=== PATIENT | female | born 1970 | race Caucasian/White ===

== ENCOUNTER 2017-05-07 11:59 | Observation (INO) | payer OTHER, SELFPAY ==
[2017-05-07] MEDS ORDERED: Ondansetron HCl/PF 4 MG/2 ML Vial ONE (12:34)
[2017-05-07 13:20] LABS: Troponin I Less than 0.010 ng/mL (< 0.028)
[2017-05-07] MEDS ORDERED: Ondansetron ODT 4 MG TAB PO PRN (15:52)
[2017-05-07 15:54] VITALS: BMI 21.0
--- NOTE | 2017-05-07 16:25 | CT ---
CT BRAIN NONCONTRAST: 05/07/17 HISTORY: 47-year-old male with right sided headache, TIA, and lightheadedness. FINDINGS: The ventricles are normal in size and configuration. There is no midline shift or any other mass eff ect. There is no evidence of acute intracranial hemorrhage, large cortical infarct, or extraaxial fl uid collection. The snell matter /white matter differentiation is maintained. The calvarium is intac t. The tympanomastoid cavities, and the upper portions of the paranasal sinuses included in these im ages, are grossly clear. IMPRESSION: Normal. jn [] POS: [facility]
[2017-05-07 17:23] LABS: Magnesium 2.3 mg/dL (1.6-2.6); Phosphorus 4.1 mg/dL (2.3-4.7)
--- NOTE | 2017-05-07 17:30 | PDOC.EVN ---
Event Note - Event Note Event Note: Patient seen and examined. Case discussed with Dr. Caruso/Liliam and his H&P reviewed and repeated by me. Agree with A/P as documented. Briefly Ms Batista is a 47 y/o HF with PMH of CAD, fibromyalgia, GERD, HLD, HTN , migraine headaches, asthma who presents with chest pain and left sided weakness. Per patient she was seen in two ERs ([facility]) on night with L sided weakness, chest pain, paresthesias of hands and back , headache. Per her report she was told she might have had a stroke but their CT scanner was broken so they couldn't confirm. She was discharged and by the time she got home she was having chest pain and so went to [facility] ER where they diagnosed her with GI cause and sent her home. She continues to have chest pain and left sided weakness so returned today for reevaluation. Patient has a 55% blockage in an artery in her heart per her last cardiology visit 2 years ago and she thinks she might have had a mini stroke a few years ago. Today she describes her chest pain as pressure with intermittent sharp twinges that is central/left sided and radiates to neck and left shoulder. Associated with dyspnea and nausea. Denies diaphoresis. VSS Gen: A&Ox3, mildly anxious, nad Neck: no carotid bruits CV: normal S1/s2 no m,g,r Lungs: CTAB Abd: soft, nd, mild ttp RUQ, no rebound or guarding Ext: no c/c/e Neuro: CN II-XII grossly intact, LUE and LLE 4/5, RUE and RLL 5/5, patellar reflexes 2+, subjective decreased sensation to LUE and LLE Labs and imaging reviewed. 1. L-sided weakness- CT scan shows no ischemic or hemorrhagic CVA. With three days of symptoms I doubt CVA as cause. PT/OT/ST, NIH stroke scale. Most likely conversion disorder. Continue to explore anxiety/stressful situations in life. Increase ASA to 325 mg daily for now. 2. CP r/o AR- EKG normal. Trend trops and check stress test in am. ASA, statin. 3. HTN- cont home meds 4. Fibromyalgia 5. HLD- check lipids.
[2017-05-07] MEDS: Acetaminophen 325 MG TAB PO PRN (18:32)
--- NOTE | 2017-05-07 20:16 | HP-2 ---
CODE STATUS: FULL. PRIMARY CARE PHYSICIAN: Myriam Chawla. ATTENDING: Dr. Springer RESIDENT: Dr. Caruso. CHIEF COMPLAINT: Chest pain. HISTORY OF PRESENT ILLNESS: This is a 47-year-old female with 3-day history of chest pain. It began on and would not go away. She also had some left -sided weakness, numbness and tingling at the same time. She has had associated dizziness and nausea, but she denies vomiting at this time. She does admit to some episodes of diarrhea. She said that she was told she could have had a stroke on of this week, but they did not do a CT scan because it was not working at that time and the medical providers at the outside facility did not warrant a transfer for a workup. She states nothing makes the pain better or worse. The thing that bothers her the most is the chest pain, but she does note that the left-sided weakness and numbness has not gone away either. She has no complaints at this time. In the ER, she was given Zofran. PAST MEDICAL HISTORY: Significant for fibromyalgia, coronary artery disease, diverticulosis, hiatal hernias, GERD, hyperlipidemia, hypertension, migraines and asthma. PAST SURGICAL HISTORY: Includes heart catheterization x5 with most recent 18 months ago that did not show any blockage, appendectomy, carpal tunnel releases bilaterally, a cholecystectomy, hysterectomy, ulnar nerve releases bilaterally. ALLERGIES: BUPROPION, CLINDAMYCIN, DEMEROL, LATEX, MEPERIDINE, PROPOXYPHENE, TRAMADOL and WELLBUTRIN. MEDICATIONS: Include, 1. Ranexa 1000 mg twice a day. 2. Singulair 10 mg once a day. 3. Elmiron 100 mg 3 times a day. 4. Nexium 40 mg 3 times a day. 5. Cymbalta 60 mg 1 time a day. 6. Mevacor 20 mg once a day. 7. Gabapentin 1200 mg 3 times a day. 8. Aspirin 81 mg a day. 9. Bentyl 20 mg. 10. Motrin 600 mg. 11. Nitro pump spray. 12. Zanaflex 2 mg 3 times a day. 13. Promethazine 60 mg. 14. Levsin 0.125 four times a day. 15. Fioricet tablet as needed. 16. Estrace 0.1 mg 2 times a week. 17. Symbicort 160/4.5 two puffs 2 times a day. 18. Xopenex 2 puffs 3 times a day. 19. Tiazac 120 mg 2 times a day. FAMILY HISTORY: Noncontributory. SOCIAL HISTORY: She is a current smoker. She is smoking about half pack per day. She has a 13-hqia-cnbv smoking history. She denies alcohol or drug use. REVIEW OF SYSTEMS: GENERAL: She denies any fevers, chills, weight changes, night sweats, or fatigue. EYES: Denies any vision changes. ENT: Denies nasal congestion, rhinorrhea, sore throat. RESPIRATORY: Denies cough, congestion. She does admit to shortness of breath. Denies any exercise intolerance. CARDIOVASCULAR: She does admit chest pain. Denies palpitations or edema. She does admit to orthopnea. GASTROINTESTINAL: She admits to nausea and diarrhea. She denies vomiting, constipation, abdominal pain, GI bleeding. GENITOURINARY: Denies incontinence, dysuria. SKIN: Denies rashes, lesions, jaundice, itching. MUSCULOSKELETAL: Denies pain, tenderness, stiffness, swelling. NEUROLOGIC: She does admit to weakness and numbness especially on her left side and some dizziness. PSYCHIATRIC: She does admit to anxiety. She denies any depression. PHYSICAL EXAMINATION: VITAL SIGNS: Blood pressure is 126/63, pulse 69, respiration 16, temperature max 98.9, pulse ox 97% on room air, current weight is 57 kilos. GENERAL: Alert and oriented x4, appropriately interactive. HEENT: PERRLA. Conjunctivae within normal limits. ENT: Tympanic membranes are pearly snell without bulging or erythema. Nasal mucosa and oropharynx within normal limits. NECK: Supple, no lymphadenopathy, no thyromegaly. CARDIOVASCULAR: Regular rate and rhythm. No murmurs, no gallops. Radial and pedal pulses equal bilaterally. RESPIRATORY: Normal effort, no retractions. Lungs clear to auscultation bilaterally. SKIN: Warm and dry. No cyanosis. No lesions. ABDOMEN: Soft, nontender to palpation. Bowel sounds are present x4. No masses or distention. EXTREMITIES: No clubbing, cyanosis, no edema. MUSCULOSKELETAL: Structure, tone. Range of motion within normal limits. Neuro exam is inconsistent at times. Informal strength testing 5/5 on both bilateral upper and lower extremities. When prompted to do so formal strength testing, she does have intermittent episodes of weakness with strength 4/5 left- sided on upper and lower extremities. NEUROLOGIC: Cranial nerves II-XII are grossly intact. GCS is 15. Inconsistent left-sided facial droop that is not present at all times. She also specifically notes when asked to stick out her tongue that she deviates to the strong side and not to the weak side which further points to her inconsistent exam. She was appropriate. Mild decrease in fine touch sensation LLE and LUE. LABORATORY DATA: These were performed at an outside ED, white blood cell count 6.9, platelet count 190. Hemoglobin 14, hematocrit 40.7, MCV was 93%, neutrophils 43.5. CK was 78, CK-MB was 0.7. Troponin I was less than 0.01. Sodium 141, potassium 3.8, chloride 108, bicarbonate 22, creatinine 11.6. BUN was 11.6, creatinine was 0.9, GFR was 69, glucose was 93, calcium was 9.4. Her total protein 7.1, albumin 4.2, total bilirubin 0.5, AST was 15, ALT 17, alkaline phosphatase 83. Her EKG showed normal sinus rhythm. Her chest x-ray at an outside ER showed nothing acute. ASSESSMENT AND PLAN: We have a 47-year-old female that presents with: 1. Left-sided weakness. We have to rule out a cerebrovascular accident versus conversion disorder. We will do a CT of her head, neuro checks and NIH scale stroke admit. Increase her aspirin to 325. 2. Atypical chest pain- with multiple cardiac risk factors. We will trend in her troponins. We will consider a stress test. She did have a stress test in 02/2016 that showed a normal cardiac function at that time. We are getting a TSH, BNP, mag, phos, and a fasting lipid panel to risk stratify her from that standpoint. 3. Hyperlipidemia. We will continue her statin. Consider increasing the dosage. 4. Chronic angina. We will continue her home medications. 5. Gastroesophageal reflux disease. We will continue her home medications. 6. Asthma. We will continue her home medications. This patient has a lot of other chronic medical problems that we will be holding her medications at this time to see if that has any effect on her presentation. DISPOSITION AND LENGTH OF HOSPITAL STAY: Will be Stroke and 1 midnight. Symptomatic medications will be provided. History and physical exam as well as management has been discussed with Dr. Springer. KEVIN
[2017-05-07 20:20] LABS: Troponin I Less than 0.010 ng/mL (< 0.028)
[2017-05-07] MEDS ORDERED: Lovastatin 20 MG TAB PO SCH (21:00)
[2017-05-07] MEDS ORDERED: diphenhydrAMINE 25 MG CAP PO SCH (21:45)
[2017-05-08] MEDS ORDERED: Ondansetron HCl/PF 4 MG/2 ML Vial IVP SCH (04:30)
[2017-05-08] MEDS ORDERED: Sodium Chloride 0.9% 1,000 ML IV SCH (04:30)
[2017-05-08 05:56] LABS: Anion Gap 11 mmol/L (10-20); BUN (Urea Nitrogen) 13 mg/dL (7.0-18.7); Calc. Creatinine Clearance 74 mL/min (70-130); Calcium 9.1 mg/dL (7.8-10.44); Carbon Dioxide 25 mmol/L (22-29); Chloride 108 mmol/L (98-107); Cholesterol 221 mg/dl (< 200 Desired); Estimated GFR-MDRD 74; LDL Cholesterol, Calculated 155 mg/dL
--- NOTE | 2017-05-08 07:29 | PDOC.FM ---
- Subjective Subjective: No acute events overnight. Her subjective neurological complaints have improved. She denies any anxiety. We had a long conversation about her health conditions and that we have done every test for her pertinent medical problems. I also told her that she would likely benefit from shelter CBT or counseling to deal with her anxiety issues. She will need close outpatient follow for her subjective complaints. - Objective Vital Signs & Weight: Vital Signs (12 hours) Temp Pulse Resp BP BP Pulse Ox 05/08/17 05:48 96/61 05/08/17 04:09 88/58 L 05/08/17 03:16 98.3 F 56 L 16 89/54 L 98 05/08/17 00:15 92/63 05/08/17 00:09 98.2 F 67 20 84/54 L 98 05/08/17 00:00 98 05/07/17 20:07 98.9 F 76 18 97 Weight Weight 55.565 kg Result Diagrams: 05/08/17 05:30 <Demar Caruso - Last Filed: 05/08/17 08:44> - Objective Vital Signs & Weight: Vital Signs (12 hours) Temp Pulse Resp BP Pulse Ox 05/08/17 12:00 98.7 F 66 16 96/60 99 05/08/17 10:33 98.6 F 70 16 05/08/17 07:44 98.6 F 70 16 102/55 L 98 05/08/17 05:48 96/61 05/08/17 04:09 88/58 L 05/08/17 03:16 98.3 F 56 L 16 89/54 L 98 Weight Weight 55.565 kg I&O: 05/07/17 05/08/17 05/09/17 06:59 06:59 06:59 Intake Total 1239 Balance 1239 Result Diagrams: 05/08/17 05:30 <Suly Renner - Last Filed: 05/08/17 12:40> Phys Exam - Physical Examination HEENT: PERRLA, moist MMs Neck: no nodes, no JVD Respiratory: no wheezing, clear to auscultation bilateral Cardiovascular: RRR, no significant murmur Gastrointestinal: soft, non-tender, no distention, positive bowel sounds Musculoskeletal: no edema, pulses present Neurological: non-focal, normal sensation, moves all 4 limbs No longer subjective 4/5 weakness on left side Lymphatic: no nodes Psychiatric: normal affect, A&O x 3 Skin: no rash <Demar Caruso - Last Filed: 05/08/17 08:44> Dx/Plan (1) Atypical chest pain Code(s): R07.89 - OTHER CHEST PAIN Status: Acute Plan: -Troponins trended and negative -Tele with no acute events -Plan for stress test -Will discharge if normal (2) Conversion disorder Code(s): F44.9 - DISSOCIATIVE AND CONVERSION DISORDER, UNSPECIFIED Status: Acute Plan: -Complaints of Left sided weakness -CT scan was negative -Inconsistent exam -Will need shelter follow up for counseling. 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 Caruso I agree with the History, Examination, Assessment and Plan documented above with any addition or exceptions noted below- Patient just returned from stress test. Denies any further chest pain or weakness. Afebrile VSS A/P: 1) Chest pain atypical- troponins negative; await stress results; if negative plan to d/ c home. 2) Weakness resolved. Suspect anxiety component <Suly Renner - Last Filed: 05/08/17 12:40>
[2017-05-08] MEDS ORDERED: Aspirin 325 MG TAB PO SCH (09:00)
[2017-05-08] MEDS: Acetaminophen 325 MG TAB PO PRN (11:22)
[2017-05-08 12:04] VITALS: BP 96/60; TEMP 98.7
--- NOTE | 2017-05-08 12:50 | NM ---
MYOCARDIAL PERFUSION SCAN: The patient was given 10 mCi of Technetium sestamibi for rest imaging and 30 mCi for stress imaging. HISTORY: Chest pain. The patient was stressed according to LexiScan protocol. The left ventricle was imaged with SPECT im aging. CT attenuation performed. There is normal activity is seen throughout the left ventricle on stress and rest images. No evidenc e of reversible ischemia. Wall motion appears normal. Ejection fraction is recorded at over 70%. IMPRESSION: Negative sestamibi stress test. POS: [facility]
[2017-05-08] MEDS ORDERED: Regadenoson 0.4 MG/5 ML SYRINGE ONE (14:48)
--- NOTE | 2017-05-09 11:21 | DIS-2 ---
DATE OF ADMISSION: 05/07/2017 DATE OF DISCHARGE: 05/08/2017 RESIDENT: Dr. Demar Caruso ADMITTING ATTENDING: Dr. Kyleigh Springer DISCHARGE ATTENDING: Dr. Suly Renner CONSULTS: Stroke team. PROCEDURES: The patient underwent a brain CT that showed ventricles are normal size and configuration. There is no midline shift or any other mass effect. There is no evidence of acute intracranial hemorrhage or large cortical infarct or extraaxial fluid collection. The snell matter, white matter differentiation is maintained. The calvarium is intact. The tympanomastoid cavities in the upper portion of the paranasal sinuses including these images are grossly clear. She also underwent a nuclear medicine stress test that showed wall motion appears normal, ejection fraction is recorded over 70%, normal activity throughout the left ventricle on stress and rest images. No evidence of reversible ischemia. PRIMARY DIAGNOSIS: 1. Atypical chest pain. 2. Conversion. 3. Anxiety. 4. Hyperlipidemia. DISCHARGE MEDICATIONS: 1. Diltiazem 120 mg. 2. Levsin 0.125 mg q.i.d. 3. Nexium 40 mg. 4. Lovastatin 20 mg. 5. Gabapentin 1200 mg t.i.d. 6. Estradiol. 7. Ranexa 1000 mg b.i.d. 8. Promethazine 50 mg. 9. Elmiron 100 mg t.i.d. 10. Montelukast 10 mg. 11. Tizanidine 2 mg. 12. Duloxetine 60 mg. 13. Fioricet. 14. Xopenex inhaler. 15. Advair Diskus. 16. Aspirin 81 mg. DISCONTINUED MEDICATIONS: None. HISTORY OF PRESENT ILLNESS AND HOSPITAL COURSE: This is a 47-year-old female with 3-day history of chest pain. It began on , would not go away. She also had some left-sided weakness, numbness and tingling at the same time. She has had associated dizziness and nausea, but she denies vomiting at this time. She does admit to some episodes of diarrhea. She said that she was told that she could have had a stroke on of this week, but they did not have CT scan because it was not working at that time and the medical providers at the outside facility did not warrant transfer for workup. She states nothing makes the pain better or worse. The pain that bothers her most is the chest pain, but she does note that her left-sided weakness and numbness did not go away either. She has no other complaints at this time. During this hospitalization, the patient was found to normal lab values of troponin I less than 0.010 x3. A cholesterol level of 221 with LDL of 155 and a TSH of 1.709. The patient had the residual weakness on her left side and progressively improving during the hospitalization. She had no focal neurologic deficits and she also had a very inconsistent neurologic exam specifically when asked to do activities, when prompted she was not able to perform them, but she was able to open a can of soda and use her phone willingly with her left side. Also, when asked to protrude her tongue, her tongue deviated to her strong side which would be the exact opposite of what would be expected if she had a deficit on her left side. The patient also had extensive conversations about anxiety and cognitive behavioral therapy that could be available to her as an outpatient. She was very resistant to this. We do believe that there is a psychological component to some of her symptoms and she would benefit from long-term cognitive behavioral therapy. Otherwise, the patient had no complications during this hospitalization and was discharged in the appropriate condition. DISPOSITION: Stable. DISCHARGE INSTRUCTIONS: 1. She will be discharged home into her own care. 2. Diet will be heart healthy diet. 3. Activity will be as tolerated with no restrictions. 4. Follow up will be with her PCP, the [facility] within 1 week. We wish her the best of luck and hope that she can get some long-term treatments for her underlying conditions. KEVIN
--- NOTE | 2017-05-24 10:49 | STRESS ---
Acquisition Time: 2017-05-08 09:15:27 Total Exercise Time: 00:01:00 Test Indications: CHEST PAIN Medications: Protocol: LEXISCAN Max HR: 139 BPM 79% of Pred: 174 BPM Max BP: 132/086 mmHG Max Work Load: 1.0 METS RESTING ECG: NORMAL SINUS RHYTHM WITH POOR R-WAVE PROGRESSION SYMPTOMS: DYSPNEA NORMAL BP RESPONSE ECTOPY: NONE ECG STRESS: NO SIGNIFICANT CHANGES INTERPRETATION: AWAIT NUCLEAR IMAGES FOR DEFINITIVE DIAGNOSIS Confirmed by CONCHITA JEFFERSON ([id number]), editor continuity and script MARTIN CEE ([id number]) on 05/24/2017 10:49:18 AM Referred By: MD Becca KEATING Confirmed By:CONCHITA JEFFERSON
--- NOTE | 2017-06-10 14:07 | EKG ---
Test Reason : CP Blood Pressure : / mmHG Vent. Rate : 065 BPM Atrial Rate : 065 BPM P-R Int : 130 ms QRS Dur : 082 ms QT Int : 434 ms P-R-T Axes : 045 067 049 degrees QTc Int : 451 ms Normal sinus rhythm Normal ECG Confirmed by SARAH BETH CRUZ MD ([id number]), legal editor MELODIE CHAIREZ ([id number]) on 06/10/2017 2:07:12 PM Referred By: Confirmed By:SARAH BETH CRUZ MD
== END 2017-05-08 13:05 | disposition home or self-care (01) ==
LOC: ERS 11:59 → 2SE 15:42
PROVIDERS: ADMIT Family Medicine; ATTEND Family Medicine
DX: R07.89 Other chest pain (principal); F41.9 Anxiety disorder, unspecified; E78.5 Hyperlipidemia, unspecified; M79.7 Fibromyalgia; I25.10 Atherosclerotic heart disease of native coronary artery without angina pectoris; K21.9 Gastro-esophageal reflux disease without esophagitis; I10 Essential (primary) hypertension; F17.210 Nicotine dependence, cigarettes, uncomplicated; R53.1 Weakness; I25.119 Atherosclerotic heart disease of native coronary artery with unspecified angina pectoris; F44.9 Dissociative and conversion disorder, unspecified; G43.909 Migraine, unspecified, not intractable, without status migrainosus; J45.909 Unspecified asthma, uncomplicated; Z79.82 Long term (current) use of aspirin; Z79.890 Hormone replacement therapy; Z79.51 Long term (current) use of inhaled steroids; Z79.899 Other long term (current) drug therapy; Z88.5 Allergy status to narcotic agent; Z88.8 Allergy status to other drugs, medicaments and biological substances; Z88.1 Allergy status to other antibiotic agents; Z91.040 Latex allergy status; Z90.49 Acquired absence of other specified parts of digestive tract; Z90.710 Acquired absence of both cervix and uterus; Z98.890 Other specified postprocedural states
CPT/HCPCS: 36415; 70450; 78452; 80048; 80061; 83735; 84100; 84443; 84484; 93005; 93017; 96374; 96376; A9500; G0378; G9162-GN-CH; G9163-GN-CH; J2405; J2785